=== PATIENT | male | born 1990 | race Hispanic/Latino ===

== ENCOUNTER 2017-11-14 10:47 | Emergency (ER) | payer BC ==
[2017-11-14 11:17] LABS: BASOPHILS % (AUTO) 0.5 % (0.0-5.0); EOSINOPHILS % (AUTO) 1.3 % (0.0-8.0); LYMPHOCYTES % (AUTO) 16.5 % (21.0-51.0); MEAN CORPUSCULAR HEMOGLOBIN 31.1 pg (27.0-33.0); MEAN CORPUSCULAR HGB CONC 35.3 g/dL (32.0-36.0); MEAN CORPUSCULAR VOLUME 88.1 fL (79-99); MONOCYTES % (AUTO) 6.7 % (3.0-13.0); PLATELET COUNT (AUTO) 302 K/uL (130-400); RED BLOOD CELL COUNT(AUTO) 5.22 MIL/uL (4.50-6.20); WHITE BLOOD COUNT (AUTO) 9.3 K/uL (4.8-10.8)
[2017-11-14 11:18] LABS: APPEARANCE,URINE Clear (CLEAR); BILIRUBIN,URINE Negative (NEGATIVE); COLOR,URINE Yellow (YELLOW); GLUCOSE, URINE (UA) >=1000 mg/dL (NEGATIVE); KETONES,URINE 15 mg/dL (NEGATIVE); LEUKOCYTE ESTERASE ,URINE Negative (NEGATIVE); NITRATE,URINE Negative (NEGATIVE); OCCULT BLOOD,URINE Negative (NEGATIVE); PH,URINE 5.5 (5.0-8.0); PROTEIN,URINE Negative (NEGATIVE)
[2017-11-14 11:27] LABS: CREATININE 1.1 mg/dL (0.5-1.5); POTASSIUM 4.6 mmol/L (3.5-5.1)
[2017-11-14 11:29] LABS: AMPHET/METH SCREEN,URINE NEGATIVE (NEGATIVE); BACTERIA,URINE Rare /HPF (None Seen); BARBITURATE SCREEN, URINE NEGATIVE (NEGATIVE); BENZODIAZEPINES SCREEN,URINE NEGATIVE (NEGATIVE); CANNABINOID SCREEN,URINE NEGATIVE (NEGATIVE); COCAINE SCREEN,URINE NEGATIVE (NEGATIVE); OPIATE SCREEN,URINE NEGATIVE (NEGATIVE); PHENCYCLIDINE SCREEN,URINE NEGATIVE (NEGATIVE); RBC,URINE None Seen /HPF (0-1); SQUAMOUS EPITHELIAL CELL,UR 0-2 /LPF (0-2); WBC,URINE 0-1 /HPF (0-1)
[2017-11-14 11:37] LABS: ALBUMIN 3.9 g/dL (3.5-5.0); BILIRUBIN,TOTAL 1.4 mg/dL (0.2-1.0); TOTAL PROTEIN, SERUM 7.2 g/dL (6.0-8.3)
[2017-11-14 11:42] LABS: CREATINE KINASE MB 0.8 ng/mL (0.5-3.6); CREATINE KINASE, TOTAL 115 U/L (21-232); MYOGLOBIN 63 ng/mL (10-92); TROPONIN I < 0.04 ng/mL (0.00-0.06)
[2017-11-14] MEDS ORDERED: INSULIN HUMULIN R 100 UNIT/ML 3ML ONE (11:59)
== END 2017-11-14 12:21 | disposition home or self-care (01) ==
LOC: EDH 10:47
DX: R42 Dizziness and giddiness (principal); E11.65 Type 2 diabetes mellitus with hyperglycemia; Z98.890 Other specified postprocedural states
CPT/HCPCS: 36415; 71046; 80053; 80305; 81001; 82550; 82553; 83874; 84484; 85025; 93005; 96372; 99285; J1815

== ENCOUNTER 2017-12-31 14:27 | Emergency (ER) | payer BC, OTHER ==
[2017-12-31] MEDS ORDERED: IBUPROFEN 800 MG TAB ONE (14:42)
[2017-12-31] MEDS ORDERED: DIAZEPAM 5 MG TABLET ONE (14:43)
== END 2017-12-31 15:52 | disposition home or self-care (01) ==
LOC: EDH 14:27
DX: S16.1XXA Strain of muscle, fascia and tendon at neck level, initial encounter (principal); S39.012A Strain of muscle, fascia and tendon of lower back, initial encounter; E11.9 Type 2 diabetes mellitus without complications; Z79.4 Long term (current) use of insulin; V59.49XA Driver of pick-up truck or van injured in collision with other motor vehicles in traffic accident, initial encounter; Y93.89 Activity, other specified; Y92.89 Other specified places as the place of occurrence of the external cause; Y99.8 Other external cause status

== ENCOUNTER 2018-04-06 06:33 | Inpatient (IN) | payer BC, OTHER ==
[~2018-04-06] VITALS: Ht 182.9 cm; Wt 110.4 kg
[2018-04-06] MEDS ORDERED: SODIUM CHLORIDE 0.9% 1000ML 1,000 ML IV ONE ×2 (07:19→10:31)
[2018-04-06] MEDS ORDERED: ONDANSETRON HCL 4 MG/2 ML VIAL ONE (07:19)
[2018-04-06 07:29] LABS: BASOPHILS % (AUTO) 0.4 % (0.0-5.0); EOSINOPHILS % (AUTO) 0.4 % (0.0-8.0); HEMATOCRIT 47.5 % (42-54); MEAN CORPUSCULAR HEMOGLOBIN 30.3 pg (27.0-33.0); MEAN CORPUSCULAR HGB CONC 33.6 g/dL (32.0-36.0); MONOCYTES % (AUTO) 4.9 % (3.0-13.0); NEUTROPHILS % (AUTO) 84.3 % (40.0-77.0); PLATELET COUNT (AUTO) 324 K/uL (130-400); RED BLOOD CELL COUNT(AUTO) 5.27 MIL/uL (4.50-6.20); RED CELL DISTRIBUTION WIDTH 13.6 % (11.0-15.5); WHITE BLOOD COUNT (AUTO) 12.7 K/uL (4.8-10.8)
[2018-04-06 08:08] LABS: APPEARANCE,URINE Clear (CLEAR); BILIRUBIN,URINE Negative (NEGATIVE); COLOR,URINE Yellow (YELLOW); GLUCOSE, URINE (UA) >=1000 mg/dL (NEGATIVE); KETONES,URINE >=160 mg/dL (NEGATIVE); LEUKOCYTE ESTERASE ,URINE Negative (NEGATIVE); NITRATE,URINE Negative (NEGATIVE); OCCULT BLOOD,URINE Negative (NEGATIVE); PROTEIN,URINE Trace (NEGATIVE)
[2018-04-06 08:17] LABS: BACTERIA,URINE Rare /HPF (None Seen); RBC,URINE 0-1 /HPF (0-1); SQUAMOUS EPITHELIAL CELL,UR Few /HPF (0-2); WBC,URINE 0-1 /HPF (0-1)
[2018-04-06 08:28] LABS: ALANINE AMINOTRANSFERASE 28 U/L (12-78); ALBUMIN 4.5 g/dL (3.5-5.0); ASPARTATE AMINOTRANSFERASE 16 U/L (10-37); BILIRUBIN,TOTAL 2.9 mg/dL (0.2-1.0); CARBON DIOXIDE 15 mmol/L (21-32); CHLORIDE 98 mmol/L (101-111); CREATININE 1.4 mg/dL (0.5-1.5); GLOMERULAR FILTR. RATE CALC 63 mL/min (>60); LIPASE 67 U/L (114-286); POTASSIUM 5.4 mmol/L (3.5-5.1); SODIUM SERUM 133 mmol/L (136-145); UREA NITROGEN, BLOOD 23 mg/dL (7-18)
[2018-04-06 08:48] LABS: GLUCOSE,RANDOM 404 mg/dL (70-105)
[2018-04-06] MEDS ORDERED: INSULIN HUMULIN R 100 UNIT/ML 3ML ONE (09:18)
[2018-04-06 09:19] LABS: ACETONE,BLOOD NEGATIVE (NEGATIVE)
[2018-04-06 12:45] VITALS: BP 135/66
[2018-04-06] MEDS ORDERED: ONDANSETRON HCL 4 MG/2 ML VIAL IVP PRN (13:30)
[2018-04-06] MEDS ORDERED: NS-20 MEQ KCL 1000ML 1,000 ML IV SCH (13:30)
[2018-04-06] MEDS ORDERED: HUM10VIA6 SQ (14:24)
[2018-04-06] MEDS ORDERED: DEXTROSE 50%-WATER 50 ML DISP.SYRIN IV PRN (14:30)
[2018-04-06] MEDS ORDERED: GLUCAGON 1MG KIT 1 MG ML IM PRN (14:30)
[2018-04-06] MEDS: SODIUM CHLORIDE 0.9% 1000ML 1,000 ML IV SCH ×2 (14:34→20:31)
[2018-04-06] MEDS: INSULIN LISPRO 100 UNIT/ML 3ML SQ SCH ×3 (14:35→20:34)
[2018-04-06 16:00] VITALS: BP 134/60
[2018-04-06 16:12] LABS: CHLORIDE 99 mmol/L (101-111); CREATININE 1.6 mg/dL (0.5-1.5); GLOMERULAR FILTR. RATE CALC 54 mL/min (>60); GLUCOSE,RANDOM 315 mg/dL (70-105); POTASSIUM 5.4 mmol/L (3.5-5.1); SODIUM SERUM 133 mmol/L (136-145); UREA NITROGEN, BLOOD 21 mg/dL (7-18)
[2018-04-06 16:36] LABS: ACETONE,BLOOD NEGATIVE (NEGATIVE)
[2018-04-06 16:48] LABS: CARBON DIOXIDE 9 mmol/L (21-32)
[2018-04-06 20:12] VITALS: BP 125/68
[2018-04-07 00:12] VITALS: BP 112/52
[2018-04-07] MEDS: SODIUM CHLORIDE 0.9% 1000ML 1,000 ML IV SCH ×4 (02:34→22:21)
[2018-04-07] MEDS: INSULIN LISPRO 100 UNIT/ML 3ML SQ SCH ×6 (04:00→20:32)
[2018-04-07 04:12] VITALS: BP 124/61
[2018-04-07 04:40] LABS: MEAN CORPUSCULAR HEMOGLOBIN 30.3 pg (27.0-33.0); MEAN CORPUSCULAR HGB CONC 33.8 g/dL (32.0-36.0); MEAN CORPUSCULAR VOLUME 89.7 fL (79-99); PLATELET COUNT (AUTO) 292 K/uL (130-400); RED BLOOD CELL COUNT(AUTO) 4.69 MIL/uL (4.50-6.20); RED CELL DISTRIBUTION WIDTH 13.5 % (11.0-15.5); WHITE BLOOD COUNT (AUTO) 12.3 K/uL (4.8-10.8)
[2018-04-07 04:53] LABS: ALBUMIN 3.3 g/dL (3.5-5.0); BILIRUBIN,TOTAL 2.5 mg/dL (0.2-1.0); CREATININE 1.4 mg/dL (0.5-1.5); POTASSIUM 4.3 mmol/L (3.5-5.1); TOTAL PROTEIN, SERUM 6.2 g/dL (6.0-8.3)
[2018-04-07 08:27] VITALS: BP 119/56
[2018-04-07 10:35] LABS: HEMOGLOBIN A1C 9.7 % (4.0-6.0)
[2018-04-07 11:38] VITALS: BP 123/57
[2018-04-07 16:23] VITALS: BP 116/52
[2018-04-07] MEDS ORDERED: FAMOTIDINE/PF 20 MG/2 ML VIAL IV ONE (19:24)
[2018-04-07] MEDS: FAMOTIDINE 20MG TAB 20 MG TAB PO SCH (20:00)
[2018-04-07 20:24] VITALS: BP 118/68
[2018-04-08 00:24] VITALS: BP 112/59
[2018-04-08 04:24] VITALS: BP 132/77
[2018-04-08 04:50] LABS: BASOPHILS % (AUTO) 0.4 % (0.0-5.0); EOSINOPHILS % (AUTO) 1.2 % (0.0-8.0); HEMATOCRIT 39.7 % (42-54); LYMPHOCYTES % (AUTO) 18.4 % (21.0-51.0); MEAN CORPUSCULAR HEMOGLOBIN 30.7 pg (27.0-33.0); MEAN CORPUSCULAR HGB CONC 34.5 g/dL (32.0-36.0); MONOCYTES % (AUTO) 9.8 % (3.0-13.0); NEUTROPHILS % (AUTO) 70.2 % (40.0-77.0); PLATELET COUNT (AUTO) 237 K/uL (130-400); RED BLOOD CELL COUNT(AUTO) 4.46 MIL/uL (4.50-6.20); RED CELL DISTRIBUTION WIDTH 13.3 % (11.0-15.5); WHITE BLOOD COUNT (AUTO) 8.5 K/uL (4.8-10.8)
[2018-04-08] MEDS: INSULIN LISPRO 100 UNIT/ML 3ML SQ SCH ×7 (04:57→20:30)
[2018-04-08 05:00] LABS: CARBON DIOXIDE 19 mmol/L (21-32); CHLORIDE 107 mmol/L (101-111); CREATININE 1.1 mg/dL (0.5-1.5); GLOMERULAR FILTR. RATE CALC 84 mL/min (>60); GLUCOSE,RANDOM 206 mg/dL (70-105); SODIUM SERUM 140 mmol/L (136-145); UREA NITROGEN, BLOOD 12 mg/dL (7-18)
[2018-04-08] MEDS: SODIUM CHLORIDE 0.9% 1000ML 1,000 ML IV SCH ×2 (05:03→17:16)
[2018-04-08 06:38] LABS: ACETONE,BLOOD NEGATIVE (NEGATIVE)
[2018-04-08 08:20] VITALS: BP 123/82
[2018-04-08] MEDS: FAMOTIDINE 20MG TAB 20 MG TAB PO SCH ×2 (08:42→20:32)
[2018-04-08 12:30] VITALS: BP 128/63
[2018-04-08] MEDS ORDERED: INSULIN GLARGINE 100 UNITS/ML 10 ML VIAL SQ SCH (12:45)
[2018-04-08] MEDS: MAGNESIUM 2GM PREMIX 50ML 50 ML IV SCH (16:20)
[2018-04-08 16:45] VITALS: BP 134/76
[2018-04-08 20:12] VITALS: BP 117/72
[2018-04-09 00:12] VITALS: BP 122/72
[2018-04-09] MEDS: SODIUM CHLORIDE 0.9% 1000ML 1,000 ML IV SCH ×4 (00:13→12:14)
[2018-04-09] MEDS: INSULIN LISPRO 100 UNIT/ML 3ML SQ SCH ×7 (04:00→16:47)
[2018-04-09 04:20] VITALS: BP 134/74
[2018-04-09 05:14] LABS: CREATININE 0.9 mg/dL (0.5-1.5); MAGNESIUM 1.8 mg/dL (1.80-2.40); POTASSIUM 3.1 mmol/L (3.5-5.1)
[2018-04-09] MEDS: MAGNESIUM 2GM PREMIX 50ML 50 ML IV SCH (05:45)
[2018-04-09 07:42] VITALS: BP 132/76
[2018-04-09] MEDS: FAMOTIDINE 20MG TAB 20 MG TAB PO SCH (08:26)
[2018-04-09 12:16] VITALS: BP 137/74
[2018-04-09] MEDS ORDERED: POTASSIUM CHLORIDE 20 MEQ ERTAB PO SCH (12:45)
[2018-04-09] MEDS ORDERED: FAMO20TA8 PO (12:58)
[2018-04-09 16:33] VITALS: BP 140/79
== END 2018-04-09 18:00 | disposition home or self-care (01) | DRG 639 ==
LOC: EDH 06:33 → EDHIP 10:45 → 4CH 12:35 → 4BH 04-08 16:52
PROVIDERS: ADMIT Family Medicine; ATTEND Family Medicine
DX: E10.10 Type 1 diabetes mellitus with ketoacidosis without coma (principal); K29.70 Gastritis, unspecified, without bleeding; E87.5 Hyperkalemia; E83.42 Hypomagnesemia; E66.9 Obesity, unspecified; D72.829 Elevated white blood cell count, unspecified; Z90.89 Acquired absence of other organs; Z68.33 Body mass index [BMI] 33.0-33.9, adult
CPT/HCPCS: 36415; 80048; 80053; 81001; 82009; 82948; 83036; 83690; 83735; 84132; 85025; 85027; J1815; J2405; J3475; J3490; J7030

== ENCOUNTER 2022-08-19 16:00 | Emergency (ER) | payer BC ==
[~2022-08-19] VITALS: Ht 182.9 cm; Wt 136.1 kg
[~2022-08-19 16:00] MED LIST: FAMO20TA8 PO; HUM10VIA6 SQ
[2022-08-19 16:03] VITALS: BP 134/91
[2022-08-19 16:53] LABS: BASOPHILS % (AUTO) 0.6 % (0.0-5.0); EOSINOPHILS % (AUTO) 2.8 % (0.0-8.0); HEMATOCRIT 46.6 % (42-54); LYMPHOCYTES % (AUTO) 21.2 % (21.0-51.0); MEAN CORPUSCULAR HEMOGLOBIN 29.7 pg (27.0-33.0); MEAN CORPUSCULAR HGB CONC 33.7 g/dL (32.0-36.0); MEAN CORPUSCULAR VOLUME 88.1 fL (79-99); MONOCYTES % (AUTO) 9.1 % (3.0-13.0); NEUTROPHILS % (AUTO) 65.8 % (40.0-77.0); PLATELET COUNT (AUTO) 341 K/uL (130-400); RED BLOOD CELL COUNT(AUTO) 5.29 MIL/uL (4.50-6.20); RED CELL DISTRIBUTION WIDTH 13.2 % (11.0-15.5); WHITE BLOOD COUNT (AUTO) 10.4 K/uL (4.8-10.8)
[2022-08-19 17:13] LABS: POTASSIUM 3.4 mmol/L (3.5-5.1); TOTAL PROTEIN, SERUM 7.3 g/dL (6.0-8.3)
== END 2022-08-19 19:48 | disposition home or self-care (01) ==
LOC: EDH 16:00
DX: E11.649 Type 2 diabetes mellitus with hypoglycemia without coma (principal); R06.81 Apnea, not elsewhere classified; Z79.899 Other long term (current) drug therapy; Z79.4 Long term (current) use of insulin
CPT/HCPCS: 36415; 71045; 80053; 82948; 83880; 84484; 85025; 85378; 93005

== ENCOUNTER 2023-10-08 19:46 | Emergency (ER) | payer BC, OTHER ==
[~2023-10-08] VITALS: Ht 182.9 cm; Wt 145.1 kg
[2023-10-08 20:07] LABS: RAPID GROUP A STREP negative (NEGATIVE)
[2023-10-08 20:12] LABS: SARS-CoV-2, RNA, NAAT NEGATIVE SARS CoV-2 (NEGATIVE)
[2023-10-08 20:20] LABS: INFLUENZA TYPE B Negative For Type B (NEGATIVE)
[2023-10-08 20:28] LABS: INFLUENZA TYPE A Positive For Type A (NEGATIVE)
[2023-10-08 22:03] VITALS: BP 149/86; PULSE 94; RESP 18; O2SAT 98
[2023-10-08] MEDS ORDERED: OSEL75 PO (22:24)
[2023-10-08] MEDS ORDERED: BENZ-39 PO (22:24)
[2023-10-08] MEDS ORDERED: BENZONATATE 100 MG CAPSULE PO ONE (22:30)
[2023-10-08] MEDS ORDERED: OSELTAMIVIR PHOSPHATE 75 MG CAP PO ONE (22:30)
== END 2023-10-08 22:44 | disposition home or self-care (01) ==
LOC: EDH 19:46
DX: J10.1 Influenza due to other identified influenza virus with other respiratory manifestations (principal); R05.9 Cough, unspecified; E11.9 Type 2 diabetes mellitus without complications; Z20.822 Contact with and (suspected) exposure to COVID-19; Z79.899 Other long term (current) drug therapy
CPT/HCPCS: 99285; 71045; 87635; 84484; 87880; 87804 ×2; 93005; C9803

== ENCOUNTER 2023-10-31 04:22 | Emergency (ER) | payer BC, OTHER ==
[~2023-10-31] VITALS: Ht 182.9 cm; Wt 153.3 kg
[~2023-10-31 04:22] MED LIST changes: +BENZ-39 PO; +OSEL75 PO
[2023-10-31 04:24] VITALS: BP 161/91; PULSE 121; RESP 18
== END 2023-10-31 05:04 | disposition left against medical advice (07) ==
LOC: EDH 04:22
DX: R07.81 Pleurodynia (principal); Z53.21 Procedure and treatment not carried out due to patient leaving prior to being seen by health care provider

== ENCOUNTER 2024-01-29 12:09 | Emergency (ER) | payer OTHER ==
[~2024-01-29] VITALS: Ht 182.9 cm; Wt 149.7 kg
[2024-01-29 13:03] LABS: BASOPHILS # (AUTO) 0.05 K/uL (0.00-0.20); BASOPHILS % (AUTO) 0.5 % (0.0-5.0); EOSINOPHILS # (AUTO) 0.33 K/uL (0.00-0.70); EOSINOPHILS % (AUTO) 3.5 % (0.0-8.0); HEMATOCRIT 46.7 % (42-54); IMMATURE GRANULOCYTE ABSOLUTE 0.03 K/uL (0-1); LYMPHOCYTES # (AUTO) 2.4 K/uL (1.0-4.8); LYMPHOCYTES % (AUTO) 25.5 % (21.0-51.0); MEAN CORPUSCULAR HEMOGLOBIN 29.2 pg (27.0-33.0); MEAN CORPUSCULAR HGB CONC 33.2 g/dL (32.0-36.0); MEAN CORPUSCULAR VOLUME 88.1 fL (79-99); MONOCYTES # (AUTO) 0.8 K/uL (0.1-1.0); MONOCYTES % (AUTO) 8.6 % (3.0-13.0); NEUTROPHILS # (AUTO) 5.9 K/uL (1.8-7.7); NEUTROPHILS % (AUTO) 61.6 % (40.0-77.0); PLATELET COUNT (AUTO) 344 K/uL (130-400); WHITE BLOOD COUNT (AUTO) 9.5 K/uL (4.8-10.8)
[2024-01-29 13:18] LABS: ALBUMIN 3.8 g/dL (3.5-5.0); BILIRUBIN,TOTAL 1.4 mg/dL (0.2-1.0); POTASSIUM 3.4 mmol/L (3.5-5.1); TOTAL PROTEIN, SERUM 7.4 g/dL (6.0-8.3)
[2024-01-29] MEDS: DEXTROSE 50%-WATER 50 ML DISP.SYRIN IV ONE (13:29)
[2024-01-29 13:46] LABS: COVID19 (SARS ANTIGEN RAPID) PRESUMPTIVE NEGATIVE (NEGATIVE); INFLUENZA TYPE A Negative For Type A (NEGATIVE); INFLUENZA TYPE B Negative For Type B (NEGATIVE)
[2024-01-29] MEDS: KETOROLAC 30MG VIAL (30MG/ML) IVP ONE (14:23)
[2024-01-29] MEDS: GUAIFENESIN-DM 200/20 MG 10 ML PO ONE (15:22)
[2024-01-29] MEDS: LACTATED RINGERS 1000ML 1,000 ML IV ONE (16:56)
[2024-01-29] MEDS ORDERED: IOHEXOL-350 75 ML VIAL IV ONE (17:49)
[2024-01-29 18:21] LABS: APPEARANCE,URINE CLEAR (CLEAR); BILIRUBIN,URINE NEGATIVE (NEGATIVE); COLOR,URINE LIGHT-YELLOW (YELLOW); GLUCOSE, URINE (UA) NEGATIVE (NEGATIVE); KETONES,URINE NEGATIVE (NEGATIVE); LEUKOCYTE ESTERASE ,URINE NEGATIVE Leu/uL (NEGATIVE); NITRATE,URINE NEGATIVE (NEGATIVE); OCCULT BLOOD,URINE SMALL (NEGATIVE); PH,URINE 6.5 (5.0-8.0); PROTEIN,URINE NEGATIVE (NEGATIVE); UROBILINOGEN,URINE 0.2 mg/dL (0.2-1.0)
[2024-01-29 18:24] VITALS: BP 124/78; PULSE 94; RESP 18; O2SAT 99
[2024-01-29 18:25] LABS: ADD UA MICROSCOPIC YES
[2024-01-29 18:26] LABS: MUCUS,URINE RARE LPF (None Seen); RBC,URINE 0-1 /HPF (0-1); SQUAMOUS EPITHELIAL CELL,UR RARE /HPF (0-2); WBC,URINE 0-1 /HPF (0-1)
[2024-01-29 18:27] LABS: AMPHET/METH SCREEN,URINE NEGATIVE (NEGATIVE); BARBITURATE SCREEN, URINE NEGATIVE (NEGATIVE); BENZODIAZEPINES SCREEN,URINE NEGATIVE (NEGATIVE); CANNABINOID SCREEN,URINE NEGATIVE (NEGATIVE); COCAINE SCREEN,URINE NEGATIVE (NEGATIVE); OPIATE SCREEN,URINE NEGATIVE (NEGATIVE); PHENCYCLIDINE SCREEN,URINE NEGATIVE (NEGATIVE)
[2024-01-29] MEDS ORDERED: BENZ-39 PO (18:51)
[2024-01-29] MEDS ORDERED: IBUP-2070 PO (18:51)
== END 2024-01-29 19:03 | disposition home or self-care (01) ==
LOC: EDH 12:09
DX: S22.32XA Fracture of one rib, left side, initial encounter for closed fracture (principal); R07.89 Other chest pain; E11.9 Type 2 diabetes mellitus without complications; X58.XXXA Exposure to other specified factors, initial encounter; Y93.89 Activity, other specified; Y92.89 Other specified places as the place of occurrence of the external cause; Y99.8 Other external cause status
CPT/HCPCS: 99285; 96374; 71270; 71045; 96361; 87426; 84484 ×2; 80053; 80305; 85025; 85378; 87880; 87804 ×2; 82948 ×3; 81001; 36415; 93005 ×2; J7120; J1885; Q9967; J7070

== ENCOUNTER 2024-10-05 18:50 | Emergency (ER) | payer SELFPAY ==
[~2024-10-05] VITALS: Ht 182.9 cm; Wt 142.9 kg
[~2024-10-05 18:50] MED LIST changes: +IBUP-2070 PO
[2024-10-05 20:05] LABS: BASOPHILS # (AUTO) 0.04 K/uL (0.00-0.20); BASOPHILS % (AUTO) 0.5 % (0.0-5.0); EOSINOPHILS # (AUTO) 0.72 K/uL (0.00-0.70); EOSINOPHILS % (AUTO) 9.4 % (0.0-8.0); HEMATOCRIT 48.4 % (42-54); IMMATURE GRANULOCYTE ABSOLUTE 0.01 K/uL (0-1); LYMPHOCYTES # (AUTO) 1.2 K/uL (1.0-4.8); LYMPHOCYTES % (AUTO) 15.9 % (21.0-51.0); MEAN CORPUSCULAR HEMOGLOBIN 29.3 pg (27.0-33.0); MEAN CORPUSCULAR HGB CONC 33.1 g/dL (32.0-36.0); MEAN CORPUSCULAR VOLUME 88.6 fL (79-99); NEUTROPHILS # (AUTO) 4.7 K/uL (1.8-7.7); NEUTROPHILS % (AUTO) 61.1 % (40.0-77.0); PLATELET COUNT (AUTO) 303 K/uL (130-400); RED BLOOD CELL COUNT(AUTO) 5.46 MIL/uL (4.50-6.20); RED CELL DISTRIBUTION WIDTH 13.3 % (11.0-15.5); WHITE BLOOD COUNT (AUTO) 7.7 K/uL (4.8-10.8)
[2024-10-05 20:18] LABS: CREATININE 1.1 mg/dL (0.5-1.3); POTASSIUM 4.1 mmol/L (3.5-5.1)
[2024-10-05 20:27] LABS: SARS-CoV-2, RNA, NAAT NEGATIVE SARS CoV-2 (NEGATIVE)
[2024-10-05 20:32] LABS: INFLUENZA TYPE A Negative For Type A (NEGATIVE); INFLUENZA TYPE B Negative For Type B (NEGATIVE)
--- NOTE | 2024-10-05 20:35 | HMCIMG ---
INDICATION: cough TECHNIQUE: CHEST 1VW COMPARISON: 01/29/2024 FINDINGS/IMPRESSION: Prominent bilateral interstitial markings which may represent bronchitis or vascular congestion in the proper clinical setting. Cardiac silhouette is within normal limits. Mild degenerative changes of the spine. The visualized upper abdomen appears unremarkable.
[2024-10-05] MEDS ORDERED: DEXT15LI31 PO (21:30)
--- NOTE | 2024-10-05 21:31 | ERN ---
ED Note History of Present Illness Stated Complaint: SOB Chief Complaint: Shortness of Breath Time Seen by MD: 18:55 Time Seen by Midlevel: 19:00 Dictation: 34-year-old male was history of diabetes coming in complaining of cough and chest pain for the last 3-4 days. States his dad has been sick with similar symptoms. Denies having any fever, nausea, vomiting, diarrhea. Allergies: Coded Allergies: No Known Drug Allergies (Unverified Allergy, Unknown, 04/06/18) Home Meds Active Scripts Ibuprofen (Ibuprofen) 600 Mg Tablet, 600 MG PO Q6H PRN for PAIN, #30 TAB Prov:MALA PAYNE MD 01/29/24 Benzonatate (Tessalon Perles) 100 Mg Cap, 100 MG PO TID for cough, #30 CAP 0 Refills Prov:MALA PAYNE MD 01/29/24 Benzonatate (Tessalon Perles) 100 Mg Cap, 200 MG PO q8 hours PRN for cough, #15 CAP 0 Refills Prov:KATEY LEE SIFTING OPERATOR 10/08/23 Oseltamivir Phosphate (Tamiflu) 75 Mg Cap, 75 MG PO BID for 5 Days, #9 CAP 0 Refills Prov:KATEY LEE SIFTING OPERATOR 10/08/23 Famotidine (Famotidine) 20 Mg Tablet, 20 MG PO BID for 60 Days, #60 TAB Prov:KRISTY LEE MD 04/09/18 Reported Medications Hum Insulin NPH/Reg Insulin Hm (Novolin 70-30 100 Unit/ml Vial) 100 Unit/1 Ml Vial, 20 UNITS SQ BIDMEALS, VIAL 04/06/18 Past Medical History Past Medical History: Diabetes-Type II Surgical History: None Social History: Negative, Lives with family Review of System Dictation Constitutional: Negative for fever,chills, and weight loss Eyes: Negative for injury, pain,redness, and discharge ENT: Negative for injury,pain or swelling Cardiovascular: Negative for chest pain, palpitations, and edema Respiratory: Positive for cough or shortness a breath, and no wheezing, Abdomen/GI: Negative for abdominal pain, nausea, vomiting, diarrhea, and constipation Back: Negative for injury and pain : Negative for injury, bleeding and discharge MS/Extremity: Negative for injury and deformity Skin: Negative for rash, and discoloration Neuro: Negative for headache, weakness, numbness, tingling, and seizure Psych: Negative for suicide ideation, homicidal ideation, and hallucinations Review of Systems: was completed Initial Vital Sign VS Vital Signs Date Time Temp Pulse Resp B/P (MAP) Pulse Ox O2 Delivery O2 Flow Rate FiO2 10/05/24 18:53 97.5 116 18 154/96 97 Room Air 0 10/05/24 19:38 21 Physical Exam Dictation General: awake, alert, NAD Head/Face: Normocephalic, atraumatic Eyes: PERRL, EOMI, vision at baseline ENT: oral cavity clear, TMs clear, no signs of infection Neck: Trachea midline, supple, no nuchal rigidity Cardiovascular: RRR, normal S1/S2, No MRGs, no JVD Respiratory: CTAB, no respiratory distress, No rales or wheezes Abdomen: Soft, non-tender, non-distended, normal bowel sounds, no guarding or rebound. Skin: Warm, dry, normal turgor, no rash MS/Extremity: Pulses equal, no cyanosis, neurovascular intact, FROM Neuro: COAx4, GCS 15, strength 5/5, CN 2-12 intact, normal cerebellar exam, normal gait, Psych: Normal behavior, mood, and affect normal Results (Laboratory/Radiology) Laboratory/Radiology Laboratory Tests Test 10/05/24 19:50 10/05/24 19:59 Influenza Type A Antigen Negative For Type A Influenza Type B Antigen Negative For Type B SARS-CoV-2, RNA, NAAT NEGATIVE SARS CoV-2 White Blood Count 7.7 K/uL (4.8-10.8) Red Blood Count 5.46 MIL/uL (4.50-6.20) Hemoglobin 16.0 g/dL (14.0-18.0) Hematocrit 48.4 % (42-54) Mean Corpuscular Volume 88.6 fL (79-99) Mean Corpuscular Hemoglobin 29.3 pg (27.0-33.0) Mean Corpuscular Hemoglobin Concent 33.1 g/dL (32.0-36.0) Red Cell Distribution Width 13.3 % (11.0-15.5) Platelet Count 303 K/uL (130-400) Mean Platelet Volume 10.7 fL (7.5-10.5) H Immature Granulocyte % (Auto) 0.1 % (0-1) Neutrophils (%) (Auto) 61.1 % (40.0-77.0) Lymphocytes (%) (Auto) 15.9 % (21.0-51.0) L Monocytes (%) (Auto) 13.0 % (3.0-13.0) Eosinophils (%) (Auto) 9.4 % (0.0-8.0) H Basophils (%) (Auto) 0.5 % (0.0-5.0) Neutrophils # (Auto) 4.7 K/uL (1.8-7.7) Lymphocytes # (Auto) 1.2 K/uL (1.0-4.8) Monocytes # (Auto) 1.0 K/uL (0.1-1.0) Eosinophils # (Auto) 0.72 K/uL (0.00-0.70) H Basophils # (Auto) 0.04 K/uL (0.00-0.20) Absolute Immature Granulocyte (auto 0.01 K/uL (0-1) Nucleated Red Blood Cells 0.0 % (0.0-0.19) Sodium Level 142 mmol/L (136-145) Potassium Level 4.1 mmol/L (3.5-5.1) Chloride Level 105 mmol/L (101-111) Carbon Dioxide Level 30 mmol/L (21-32) Blood Urea Nitrogen 15 mg/dL (7-18) Creatinine 1.1 mg/dL (0.5-1.3) Glomerular Filtration Rate Calc 89 mL/min (>90) Random Glucose 173 mg/dL (70-105) H Total Calcium 8.9 mg/dL (8.5-10.1) Troponin I High Sensitivity < 4 ng/L (4-75) L Labs Reviewed?: Yes EKG Comment: Date:10/05/24 Time:1938 Ventricular rate:111 AL interval:135 QRS duration:42 QT/QTc:314/427 EKG interpretation: Sinus tachycardia Reviewed by ED Attending no STEMI interpreted by ER MD X-RAY Comment: [address] [address] IMAGING REPORT Signed PATIENT: THIERNO BRENNAN MR#: [id number] : 1990 SEX: M AGE: 34 LOCATION: [facility] ORDER 29 STATUS: REG ER REPORT#: [id number] SERVICE 27 REASON: cough ORDERING PHYSICIAN: SEBAS SERNA NP PROCEDURE: CXR1VW - CHEST 1VW INDICATION: cough TECHNIQUE: CHEST 1VW COMPARISON: 01/29/2024 FINDINGS/IMPRESSION: Prominent bilateral interstitial markings which may represent bronchitis or vascular congestion in the proper clinical setting. Cardiac silhouette is within normal limits. Mild degenerative changes of the spine. The visualized upper abdomen appears unremarkable. DICTATED BY: CRISTIAN FORTUNE MD DATE: 10/05/242030 ELECTRONICALLY SIGNED BY: CRISTIAN FORTUNE MD DATE: 10/05/242034 ED Course ED Course Orders Procedure Category Date Status Time Cbc With Differential LAB 10/05/24 Complete 19:28 Basic Metabolic Panel LAB 10/05/24 Complete 19:28 Troponin I High LAB 10/05/24 Complete Sensitivity 19:28 12 Lead Ekg Tracing- EKG 10/05/24 Logged Technical 19:28 Chest 1vw RAD 10/05/24 Resulted 19:28 Covid Rna Naat LAB 10/05/24 Complete 19:28 Influenza Type A & B, LAB 10/05/24 Complete Rapid 19:50 Vital Signs Date Time Temp Pulse Resp B/P (MAP) Pulse Ox O2 Delivery O2 Flow Rate FiO2 10/05/24 19:38 97.3 118 20 144/86 97 Room Air* 0 21 10/05/24 18:53 97.5 116 18 154/96 97 Room Air 0 Medical Decision Making MDM MDM: 34-year-old male was history of diabetes coming in complaining of cough and chest pain for the last 3-4 days. States his dad has been sick with similar symptoms. Denies having any fever, nausea, vomiting, diarrhea.CBC shows no leukocytosis, no anemia, no thrombocytopenia. Chemistry unremarkable. Hyperglycemia at 173. Troponin negative. Serology negative for COVID and flu. Chest x-ray shows bilateral interstitial markings which may represent bronchitis or vascular congestion. We will discharge patient with cough medication follow up PCP. Patient's vital signs have been maintain stable, patient is not tachypneic or hypoxic. Vital signs are stable, heart rate has 101/105 bpm. Discussed findings with patient, educated to follow up with PCP and or return to the ER in 1-2 days. Patient verbalized understanding, answered all questions. Differential diagnosis: Viral syndrome, influenza, COVID, pneumonia, bronchitis Rationale: Tests considered and ordered secondary to shared decision making include: Previous outside records reviewed: Old ER visits. Risk of complication and/or morbidity or mortality of patient management: None Medications-Per medication reconciliation Need for hospitalization: Patient does not meet criteria for hospitalization. Need for emergency major/minor surgery: No There are no social concerns with this patient. Prescription drug management Prescriptions will include symptomatic care Patient's prior external medical records from other ER visits were reviewed by me as indicated. Prior testing and results from previous visits were reviewed. Prior tests were taken into account with medical decision making and resource utilization, independent historian/historians were used to obtain complete medical history. I independently interpreted the test that were performed, results were reviewed by me and considered findings on radiology if ordered. Medical management and examination interpretation discussions were had by me with other qualified healthcare professionals as indicated for the patient's care. DX & DISP Disposition: Discharge Departure Impression: Primary Impression: Bronchitis Condition: Stable Scripts Dextromethorphan HBr (Tussin Cough) 15 Mg/5 Ml Liquid 2.5 ML PO BID for 10 Days, #50 ML 0 Refills Prov: SEBAS SERNA NP 10/05/24 Referrals: LEIGHTON WESLEY MD (PCP) Time of Disposition: 21:31 I have reviewed the case, and I agree with, Diagnosis and Plan SEBAS SERNA NP Oct 05, 2024 21:31
[2024-10-05 21:34] VITALS: BP 147/86; PULSE 99; RESP 18; TEMP 97.8; O2SAT 97
--- NOTE | 2024-10-06 06:54 | EKG ---
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
== END 2024-10-05 21:44 | disposition home or self-care (01) ==
LOC: EDH 18:50
DX: J40 Bronchitis, not specified as acute or chronic (principal); E11.9 Type 2 diabetes mellitus without complications; Z20.822 Contact with and (suspected) exposure to COVID-19
CPT/HCPCS: 36415; 71045; 80048; 84484; 85025; 87635; 87804; 93005; 99285

== ENCOUNTER 2025-06-27 08:22 | Emergency (ER) | payer OTHER ==
[~2025-06-27] VITALS: Ht 182.9 cm; Wt 158.8 kg
[~2025-06-27 08:22] MED LIST changes: +DEXT15LI31 PO; +IBUP-1492 PO; -IBUP-2070 PO
[2025-06-27 09:11] LABS: IMMATURE GRANULOCYTE ABSOLUTE 0.04 K/uL (0-1); NUCLEATED RED BLOOD CELLS 0.0 % (0.0-0.19); PLATELET COUNT (AUTO) 340 K/uL (130-400); RED BLOOD CELL COUNT(AUTO) 5.18 MIL/uL (4.50-6.20); RED CELL DISTRIBUTION WIDTH 13.4 % (11.0-15.5); WHITE BLOOD COUNT (AUTO) 10.8 K/uL (4.8-10.8)
[2025-06-27 09:17] LABS: CREATININE 0.8 mg/dL (0.5-1.3); GLOMERULAR FILTR. RATE CALC 117.0 mL/min (>90); GLUCOSE,RANDOM 56.0 mg/dL (70-105); SODIUM SERUM 138.0 mmol/L (136-145); UREA NITROGEN, BLOOD 16.0 mg/dL (7-18)
[2025-06-27 09:18] LABS: APPEARANCE,URINE CLEAR (CLEAR); GLUCOSE, URINE (UA) NEGATIVE (NEGATIVE); LEUKOCYTE ESTERASE ,URINE 250 Leu/uL (NEGATIVE); NITRATE,URINE NEGATIVE (NEGATIVE); OCCULT BLOOD,URINE NEGATIVE (NEGATIVE)
[2025-06-27 09:22] LABS: ADD UA MICROSCOPIC YES
[2025-06-27 09:25] LABS: SQUAMOUS EPITHELIAL CELL,UR RARE /HPF (0-2)
[2025-06-27] MEDS ORDERED: CEPH500B PO (09:48)
--- NOTE | 2025-06-27 09:48 | ERN ---
General Chief Complaint: Flank Pain Stated Complaint: LEFT FLANK PAIN Time Seen by MD: 08:38 Source: patient History of Present Illness Initial Comments Patient is a 35-year-old male coming in complaining of left flank and back pain. Along with this patient states that he has been feeling weak and has not noticed flow discomfort when he urinates. Symptoms began one day ago. Allergies: Coded Allergies: No Known Drug Allergies (Unverified Allergy, Unknown, 04/06/18) Home Meds Active Scripts Cephalexin Monohydrate (Keflex) 500 Mg Cap, 1 CAP PO BID for 10 Days, #20 CAP 0 Refills Prov:CORRIE CONTRERAS MD 06/27/25 Dextromethorphan HBr (Tussin Cough) 15 Mg/5 Ml Liquid, 2.5 ML PO BID for 10 D ays, #50 ML 0 Refills Prov:SEBAS SERNA NP 10/05/24 Ibuprofen (Ibuprofen) 600 Mg Tablet, 600 MG PO Q6H PRN for PAIN, #30 TAB Prov:MALA PAYNE MD 01/29/24 Benzonatate (Tessalon Perles) 100 Mg Cap, 100 MG PO TID for cough, #30 CAP 0 Refills Prov:MALA PAYNE MD 01/29/24 Benzonatate (Tessalon Perles) 100 Mg Cap, 200 MG PO q8 hours PRN for cough, #15 CAP 0 Refills Prov:KATEY LEE NP 10/08/23 Oseltamivir Phosphate (Tamiflu) 75 Mg Cap, 75 MG PO BID for 5 Days, #9 CAP 0 Refills Prov:KATEY LEE NP 10/08/23 Famotidine (Famotidine) 20 Mg Tablet, 20 MG PO BID for 60 Days, #60 TAB Prov:KRISTY LEE MD 04/09/18 Reported Medications Hum Insulin NPH/Reg Insulin Hm (Novolin 70-30 100 Unit/ml Vial) 100 Unit/1 Ml Vial, 20 UNITS SQ BIDMEALS, VIAL 04/06/18 Past Medical History Past Medical History: Diabetes-Type II Past Surgical History: None Social History Social History: Negative, Lives with family ROS Dictation CONSTITUTIONAL: No chills, no fever, no weakness, no diaphoresis, no malaise. HEAD/FACE: No signs of trauma. EENT: No eye pain, no blurred vision, no tearing, no double vision, no ear pain, no ear discharge, no nose pain, no nasal congestion, no throat pain, no throat swelling, no mouth pain. RESPIRATORY: No cough, no orthopnea, no SOB, no stridor, no wheezing. CARDIOVASCULAR: No chest pain, no edema, no palpitations, no syncope. GASTROINTESTINAL/ABDOMINAL: No abdominal pain, no constipation, no diarrhea, no nausea, no vomiting. GENITOURINARY: No abnormal discharge, dysuria, no frequent urination, no hematuria. No complaints of pain in the genitals. MUSCULOSKELETAL: back pain, no gout, no joint pain, no joint swelling, no m uscle pain, no muscle stiffness, no neck pain. INTEGUMENTARY: No change in color, no change in hair/nails, no dryness, no lesi on, no lumps, no rash. NEUROLOGICAL/PSYCH: No anxiety, not depressed, no emotional problem, no headache, no numbness, no pre-existing deficit, no history of seizures, no tremors, no weakness. HEMATOLOGIC/LYMPHATIC: Not anemic, no history of blood clots, no apparent bleeding, no bruising, glands not swollen. All Systems Negative, Except as Noted. Physical Exam Physical Exam Dictation VITAL SIGNS: Reviewed. GENERAL APPEARANCE: Alert, oriented x3, no acute distress, obese. HEAD AND FACE: Non-traumatic. EYES: PERRL, pink conjunctivas, eyelid no trauma, anterior chamber clear. EARS: Pinnas intact and no signs of trauma or erythema. Ear canals clear and no discharge. TMs no erythema. NOSE: No discharge, no bleeding. OROPHARYNX: Mouth normal, teeth no caries, tongue pink. Pharynx clear, no erythema. Tonsils no exudates, no abscesses noted. Mucous membrane moist. NECK: Supple, non-tender, no thyromegaly, no masses, no JVD, no bruits. BREAST: Deferred. CHEST: No tenderness, no crepitus, no paradoxical movement, no retractions. LUNGS: Clear, well-ventilated, symmetric, no rales, no wheezing, no rhonchi, no stridor, good breath sounds bilaterally. HEART: Regular rate, regular rhythm, no murmur, no gallops. VASCULAR: No peripheral edema. ABDOMEN: Soft, positive bowel sounds, nondistended, no guarding, nontender, no rebound, no masses no hepatomegaly, no splenomegaly, no Mukherjee's sign, no hernias. RECTAL: Deferred. GENITAL: Deferred. NEUROLOGICAL: Normal speech, gross motor function intact, gross sensory function intact. MUSCULOSKELETAL: Neck nontender, full range of motion, back nontender, full range of motion. EXTREMITIES: Nontender, full range of motion. SKIN: Color pink, dry, no turgor, no rash, no lacerations, no abrasions, no contusions. LYMPHATICS: Deferred. Results Laboratory and Microbiology Lab and Micro Result Laboratory Tests Test 06/27/25 09:00 06/27/25 09:06 Urine Color LIGHT-YELLOW (YELLOW) Urine Appearance CLEAR (CLEAR) Urine pH 6.5 (5.0-8.0) Urine Specific [place] 1.014 (1.001-1.031) Urine Protein NEGATIVE mg/dL (NEGATIVE) Urine Glucose (UA) NEGATIVE mg/dL (NEGATIVE) Urine Ketones NEGATIVE mg/dL (NEGATIVE) Urine Occult Blood NEGATIVE (NEGATIVE) Urine Nitrate NEGATIVE (NEGATIVE) Urine Bilirubin NEGATIVE mg/dL (NEGATIVE) Urine Urobilinogen 0.2 mg/dL (0.2-1.0) Urine Leukocyte Esterase 250 Mark/uL (NEGATIVE) H Urine RBC 2-5 /HPF (0-1) H Urine WBC 11-25 /HPF (0-1) H Urine Squamous Epithelial Cells RARE /HPF (0-2) Urine Bacteria None /HPF (None Seen) White Blood Count 10.8 K/uL (4.8-10.8) Red Blood Count 5.18 MIL/uL (4.50-6.20) Hemoglobin 15.1 g/dL (14.0-18.0) Hematocrit 46.2 % (42-54) Mean Corpuscular Volume 89.2 fL (79-99) Mean Corpuscular Hemoglobin 29.2 pg (27.0-33.0) Mean Corpuscular Hemoglobin Concent 32.7 g/dL (32.0-36.0) Red Cell Distribution Width 13.4 % (11.0-15.5) Platelet Count 340 K/uL (130-400) Mean Platelet Volume 10.0 fL (7.5-10.5) Immature Granulocyte % (Auto) 0.4 % (0-1) Neutrophils (%) (Auto) 73.4 % (40.0-77.0) Lymphocytes (%) (Auto) 16.1 % (21.0-51.0) L Monocytes (%) (Auto) 7.9 % (3.0-13.0) Eosinophils (%) (Auto) 1.6 % (0.0-8.0) Basophils (%) (Auto) 0.6 % (0.0-5.0) Neutrophils # (Auto) 8.0 K/uL (1.8-7.7) H Lymphocytes # (Auto) 1.7 K/uL (1.0-4.8) Monocytes # (Auto) 0.9 K/uL (0.1-1.0) Eosinophils # (Auto) 0.17 K/uL (0.00-0.70) Basophils # (Auto) 0.06 K/uL (0.00-0.20) Absolute Immature Granulocyte (auto 0.04 K/uL (0-1) Nucleated Red Blood Cells 0.0 % (0.0-0.19) Sodium Level 138 mmol/L (136-145) Potassium Level 4.0 mmol/L (3.5-5.1) Chloride Level 102 mmol/L (101-111) Carbon Dioxide Level 32 mmol/L (21-32) Blood Urea Nitrogen 16 mg/dL (7-18) Creatinine 0.8 mg/dL (0.5-1.3) Glomerular Filtration Rate Calc 117 mL/min (>90) Random Glucose 56 mg/dL (70-105) L Total Calcium 8.9 mg/dL (8.5-10.1) Labs Reviewed?: Yes MDM MDM: Differential diagnosis: UTI, dysuria, back strain, Rationale: Tests considered and ordered secondary to shared decision making include: Previous outside records reviewed: Old ER visits. Risk of complication and/or morbidity or mortality of patient management: None Medications-Per medication reconciliation Need for hospitalization: Patient does not meet criteria for hospitalization. Need for emergency major/minor surgery: No Patient is a 35-year-old male coming in complaining of back tenderness with dysuria. Laboratory workup positive for urinary tract infection. Patient will be discharged in stable condition with a diagnosis of UTI I did advised him appropriate follow up with PCP in 1-2 days for ongoing management. Throughout ER visit patient has been stable. ED Course Orders Procedure Category Date Status Time Cbc With Differential LAB 06/27/25 Complete 08:54 Basic Metabolic Panel LAB 06/27/25 Complete 08:54 Urinalysis Profile LAB 06/27/25 Complete 08:54 Culture Urine LAVERNE 06/27/25 In Process 09:22 Ct Abdomen W/O CT 06/27/25 Logged Contrast 09:45 Ceftriaxone 1g Vial PHA 06/27/25 Logged (Rocephine 1g Inj) 10:00 Ketorolac PHA 06/27/25 Logged Tromethamine 30mg/Ml 10:00 Current Medications Medications (Trade) Dose Ordered Sig/Genny Route PRN Reason Start Time Stop Time Status Last Admin Dose Admin Ceftriaxone Sodium (ROCEphine 1G INJ) 1 gm ONCE ONCE IM 06/27/25 10:00 06/27/25 10:01 UNV Ketorolac Tromethamine (toRADol) 30 mg ONCE ONCE IM 06/27/25 10:00 06/27/25 10:01 UNV Vital Signs Date Time Temp Pulse Resp B/P (MAP) Pulse Ox O2 Delivery O2 Flow Rate FiO2 06/27/25 08:23 98.1 94 18 145/89 98 Room Air DX & DISP Disposition: Discharge Departure Impression: Primary Impression: UTI (urinary tract infection) Condition: Stable Scripts Cephalexin Monohydrate (Keflex) 500 Mg Cap 1 CAP PO BID for 10 Days, #20 CAP 0 Refills Prov: CORRIE CONTRERAS MD 06/27/25 Additional Instructions: FOLLOW-UP WITH PRIMARY CARE PROVIDER IN 1 TO 2 DAYS. TAKE MEDICATIONS DIRECTED HERE IN THE EMERGENCY ROOM. OKAY TO CONTINUE HOME MEDICATIONS UNLESS OTHERWISE DISCUSSED DURING YOUR VISIT IN THE EMERGENCY ROOM TODAY. RETURN TO YOUR NEAREST EMERGENCY ROOM IF SYMPTOMS WORSEN OR IF THERE IS NO IMPROVEMENT. CALL 911 IF YOU NEED IMMEDIATE ASSISTANCE. TAKE TYLENOL [id number] NEEDED AND IF NO CONTRAINDICATIONS ARE PRESENT. INCREASE ORAL HYDRATION. A WOUND CULTURE OR URINE CULTURE WAS ORDERED HERE IN THE EMERGENCY ROOM DEPARTMENT PLEASE FOLLOW-UP WITH PRIMARY CARE PROVIDER AND ADVISE THEM TO GET REPORTS FROM OUR FACILITY. IF YOU HAD ANY YAO WRAP/SPLINTS THAT WERE APPLIED HERE, PLEASE DO NOT REMOVE THEM UNTIL YOU SEE YOUR PRIMARY CARE OR SPECIALTY. Referrals: Referrals: LEIGHTON WESLEY MD (PCP) Time of Disposition: 09:47 CORRIE CONTRERAS MD Jun 27, 2025 09:48
[2025-06-27] MEDS ORDERED: cefTRIAXone 1G VIAL 1 GM ONE (11:10)
[2025-06-27] MEDS ORDERED: LIDOCAINE HCL-MPF 2% 5ML VIAL ONE (11:11)
[2025-06-27 11:19] VITALS: BP 140/81; PULSE 87; RESP 18; TEMP 98; O2SAT 97
== END 2025-06-27 11:26 | disposition home or self-care (01) ==
LOC: EDH 08:22
DX: N39.0 Urinary tract infection, site not specified (principal); E11.9 Type 2 diabetes mellitus without complications
CPT/HCPCS: 99284; 80048; 85025; 87086; 81001; 36415; 96372 ×2; J1885; J0696; J3490

== ENCOUNTER 2025-09-07 12:15 | Emergency (ER) | payer OTHER ==
[~2025-09-07] VITALS: Ht 182.9 cm; Wt 136.1 kg
[~2025-09-07 12:15] MED LIST changes: +CEPH500B PO
[2025-09-07 12:32] VITALS: TEMP 98.1
[2025-09-07 12:50] VITALS: PULSE 115; RESP 20
[2025-09-07] MEDS: 0.9%NACL 1000ML 1,000 ML IV STA (12:56)
[2025-09-07 13:15] LABS: SARS-CoV-2, RNA, NAAT NEGATIVE SARS CoV-2 (NEGATIVE)
[2025-09-07 13:19] LABS: INFLUENZA TYPE A Negative For Type A (NEGATIVE); INFLUENZA TYPE B Negative For Type B (NEGATIVE)
[2025-09-07 13:30] LABS: RAPID GROUP A STREP negative (NEGATIVE)
[2025-09-07] MEDS: DEXTROSE 50%-WATER 50 ML DISP.SYRIN IV ONE (14:05)
--- NOTE | 2025-09-07 14:08 | NUR ---
PT STATES "I FEEL MY BLOOD SUGAR IS LOW" CHECKED BLOOD GLUCOSE AND READING 50, NOTIFIED SEBAS TELECOMMUNICATIONS LINE MECHANIC AND ORDERED D50 IVP 50 ML X 1 ANS CBC AND CMP, PT AWAKE, AND ORIENTED X 3
[2025-09-07 14:12] VITALS: PULSE 104; RESP 20
[2025-09-07 14:24] LABS: NUCLEATED RED BLOOD CELLS 0.0 % (0.0-0.19); PLATELET COUNT (AUTO) 291.0 K/uL (130-400); RED BLOOD CELL COUNT(AUTO) 4.67 MIL/uL (4.50-6.20); RED CELL DISTRIBUTION WIDTH 13.2 % (11.0-15.5); WHITE BLOOD COUNT (AUTO) 14.9 K/uL (4.8-10.8)
[2025-09-07 14:31] LABS: CREATININE 1.0 mg/dL (0.5-1.3); GLOMERULAR FILTR. RATE CALC 99.0 mL/min (>90); GLUCOSE,RANDOM 146.0 mg/dL (70-105); SODIUM SERUM 137.0 mmol/L (136-145); UREA NITROGEN, BLOOD 14.0 mg/dL (7-18)
[2025-09-07 14:36] LABS: ASPARTATE AMINOTRANSFERASE 13.0 U/L (10-37); TOTAL PROTEIN, SERUM 6.4 g/dL (6.0-8.3)
--- NOTE | 2025-09-07 14:58 | HMCIMG ---
EXAM: CR Chest, 1 View. CLINICAL HISTORY: cough COMPARISON: None provided. FINDINGS: LUNGS: The lungs show no infiltrate or other acute finding. PLEURAL SPACES: No evidence of pleural effusion or pneumothorax. MEDIASTINUM: Cardiac size and mediastinal contours within normal limits. BONES: No aggressive appearing osseous lesion seen. IMPRESSION: No acute cardiopulmonary pathology is evident. /[place]
[2025-09-07] MEDS ORDERED: METH4TAB3 PO (15:05)
[2025-09-07] MEDS ORDERED: BENZ-39 PO (15:05)
[2025-09-07] MEDS ORDERED: ALBUHFA IH (15:05)
--- NOTE | 2025-09-07 15:05 | ERN ---
ED Note History of Present Illness Stated Complaint: COUGH Chief Complaint: Cough Time Seen by MD: 12:19 Time Seen by Midlevel: 12:25 Dictation: 35 year old male coming in with the complaints of shortness a breath. Patient states it started three days ago. States he has only medical history is diabetes. States he took his insulin this morning with a light breakfast. Patient states sometime ago they also gave him in inhaler but ran out and was not told why he needed it or if he needed it [employer]. Allergies: Coded Allergies: No Known Drug Allergies (Unverified Allergy, Unknown, 04/06/18) Home Meds Active Scripts Benzonatate (Tessalon Perles) 100 Mg Cap, 200 MG PO TID for cough for 10 Days, #30 CAP 0 Refills Prov:SEBAS SERNA CNP 09/07/25 Methylprednisolone (Medrol) 4 Mg Tab.ds.pk, 1 TAB PO AD for 6 Days, #21 TAB 0 Refills 6 on day 1 then reduce by one tablet daily until gone Prov:SEBAS SERNA CNP 09/07/25 Albuterol Sulfate (Ventolin Hfa/Proventil Hfa/Proair Hfa) 90 Mcg Puff, 2 PUFF IH Q4H for WHEEZING, #1 INHALER 0 Refills Prov:SEBAS SERNA CNP 09/07/25 Cephalexin Monohydrate (Keflex) 500 Mg Cap, 1 CAP PO BID for 10 Days, #20 CAP 0 Refills Prov:CORRIE CONTRERAS MD 06/27/25 Dextromethorphan HBr (Tussin Cough) 15 Mg/5 Ml Liquid, 2.5 ML PO BID for 10 Days, #50 ML 0 Refills Prov:SEBAS SERNA CNP 10/05/24 Ibuprofen (Ibuprofen) 600 Mg Tablet, 600 MG PO Q6H PRN for PAIN, #30 TAB Prov:MALA PAYNE MD 01/29/24 Benzonatate (Tessalon Perles) 100 Mg Cap, 100 MG PO TID for cough, #30 CAP 0 Refills Prov:MALA PAYNE MD 01/29/24 Benzonatate (Tessalon Perles) 100 Mg Cap, 200 MG PO q8 hours PRN for cough, #15 CAP 0 Refills Prov:KATEY LEE 10/08/23 Oseltamivir Phosphate (Tamiflu) 75 Mg Cap, 75 MG PO BID for 5 Days, #9 CAP 0 Refills Prov:KATEY LEE [facility] 10/08/23 Famotidine (Famotidine) 20 Mg Tablet, 20 MG PO BID for 60 Days, #60 TAB Prov:KRISTY LEE MD 04/09/18 Reported Medications Hum Insulin NPH/Reg Insulin Hm (Novolin 70-30 100 Unit/ml Vial) 100 Unit/1 Ml Vial, 20 UNITS SQ BIDMEALS, VIAL 04/06/18 Past Medical History Past Medical History: Diabetes-Type II Surgical History: None Social History: Negative, Lives with family Review of System Dictation Constitutional: Negative for fever,chills, and weight loss Eyes: Negative for injury, pain,redness, and discharge ENT: Negative for injury,pain or swelling Cardiovascular: Negative for chest pain, palpitations, and edema Respiratory: Complaining of shortness a breath Abdomen/GI: Negative for abdominal pain, nausea, vomiting, diarrhea, and constip ation Back: Negative for injury and pain : Negative for injury, bleeding and discharge MS/Extremity: Negative for injury and deformity Skin: Negative for rash, and discoloration Neuro: Negative for headache, weakness, numbness, tingling, and seizure Psych: Negative for suicide ideation, homicidal ideation, and hallucinations Review of Systems: was completed Initial Vital Sign VS Vital Signs Date Time Temp Pulse Resp B/P (MAP) Pulse Ox O2 Delivery O2 Flow Rate FiO2 09/07/25 12:17 98.1 120 20 126/82 98 Room Air 0 09/07/25 12:32 21 Physical Exam Dictation General: awake, alert, NAD Head/Face: Normocephalic, atraumatic Eyes: PERRL, EOMI, vision at baseline ENT: oral cavity clear, TMs clear, no signs of infection Neck: Trachea midline, supple, no nuchal rigidity Cardiovascular: RRR, normal S1/S2, No MRGs, no JVD Respiratory: , no respiratory distress, bilateral inspiratory and expiratory wheezing Abdomen: Soft, non-tender, non-distended, normal bowel sounds, no guarding or rebound. Skin: Warm, dry, normal turgor, no rash MS/Extremity: Pulses equal, no cyanosis, neurovascular intact, FROM Neuro: COAx4, GCS 15, strength 5/5, CN 2-12 intact, normal cerebellar exam, normal gait, Psych: Normal behavior, mood, and affect normal Results (Laboratory/Radiology) Laboratory/Radiology Laboratory Tests Test 09/07/25 12:20 09/07/25 13:59 09/07/25 14:13 09/07/25 14:56 Influenza Type A Antigen Negative For Type A Influenza Type B Antigen Negative For Type B SARS-CoV-2, RNA, NAAT NEGATIVE SARS CoV-2 Group A Streptococcus Rapid negative (NEGATIVE) Whole Blood Glucose 50 MG/DL (70-110) *L 67 MG/DL (70-110) L Bedside Glucose Comment Notified Nurse White Blood Count 14.9 K/uL (4.8-10.8) H Red Blood Count 4.67 MIL/uL (4.50-6.20) Hemoglobin 13.6 g/dL (14.0-18.0) L Hematocrit 42.3 % (42-54) Mean Corpuscular Volume 90.6 fL (79-99) Mean Corpuscular Hemoglobin 29.1 pg (27.0-33.0) Mean Corpuscular Hemoglobin Concent 32.2 g/dL (32.0-36.0) Red Cell Distribution Width 13.2 % (11.0-15.5) Platelet Count 291 K/uL (130-400) Mean Platelet Volume 10.5 fL (7.5-10.5) Nucleated Red Blood Cells 0.0 % (0.0-0.19) Sodium Level 137 mmol/L (136-145) Potassium Level 3.7 mmol/L (3.5-5.1) Chloride Level 103 mmol/L (101-111) Carbon Dioxide Level 29 mmol/L (21-32) Blood Urea Nitrogen 14 mg/dL (7-18) Creatinine 1.0 mg/dL (0.5-1.3) Glomerular Filtration Rate Calc 99 mL/min (>90) Random Glucose 146 mg/dL (70-105) H Total Calcium 8.1 mg/dL (8.5-10.1) L Total Bilirubin 1.5 mg/dL (0.2-1.0) H Aspartate Amino Transf (AST/SGOT) 13 U/L (10-37) Alanine Aminotransferase (ALT/SGPT) 18 U/L (12-78) Alkaline Phosphatase 78 U/L (50-136) Total Protein 6.4 g/dL (6.0-8.3) Albumin 3.3 g/dL (3.5-5.0) L Test 09/07/25 15:38 Whole Blood Glucose 121 MG/DL (70-110) #H Bedside Glucose Comment Notified Nurse Labs Reviewed?: Yes X-RAY Comment: [facility] [address] [place] [address] IMAGING REPORT Signed PATIENT: THIERNO BRENNAN MR#: [id number] : 1990 SEX: M AGE: 35 LOCATION: [facility] ORDER 23 STATUS: REG ER REPORT#: [id number] SERVICE 22 REASON: cough ORDERING PHYSICIAN: SEBAS SERNA CNP PROCEDURE: CXR1VW - CHEST 1VW EXAM: CR Chest, 1 View. CLINICAL HISTORY: cough COMPARISON: None provided. FINDINGS: LUNGS: The lungs show no infiltrate or other acute finding. PLEURAL SPACES: No evidence of pleural effusion or pneumothorax. MEDIASTINUM: Cardiac size and mediastinal contours within normal limits. BONES: No aggressive appearing osseous lesion seen. IMPRESSION: No acute cardiopulmonary pathology is evident. /[place] DICTATED BY: COLLIN LUQUE Jr., MD DATE: 09/07/251556 ELECTRONICALLY SIGNED BY: COLLIN LUQUE Jr., MD DATE: 09/07/251556 ED Course ED Course Orders Procedure Category Date Status Time Chest 1vw RAD 09/07/25 Resulted 12:23 Covid Rna Naat LAB 09/07/25 Complete 12:23 Rapid (Group A Strep) LAB 09/07/25 Complete 12:23 Influenza Type A & B, LAB 09/07/25 Complete Rapid 12:23 Methylprednisolone PHA 09/07/25 Complete Succ 125mg (Solu-Medr 12:30 0.9%Nacl 1000ml (Ns PHA 09/07/25 Complete 1000ml) 12:23 Ipratropium/Albuterol PHA 09/07/25 Complete Neb (Duoneb) 12:30 Ipratropium/Albuterol PHA 09/07/25 Complete Neb (Duoneb) 14:00 Dextrose 50%-Water PHA 09/07/25 Complete (D50w) 14:00 Cbc Without LAB 09/07/25 Complete Differential 14:00 Comprehensive LAB 09/07/25 Complete Metabolic Panel 14:00 Ipratropium/Albuterol PHA 09/07/25 Complete Neb (Duoneb) 15:00 Current Medications Medications (Trade) Dose Ordered Sig/Genny Route PRN Reason Start Time Stop Time Status Last Admin Dose Admin Albuterol (DUOneb) 1 UDVIAL ONCE ONCE IH 09/07/25 12:30 09/07/25 12:31 DC 09/07/25 12:49 Albuterol (DUOneb) 1 UDVIAL ONCE ONCE IH 09/07/25 14:00 09/07/25 14:01 DC 09/07/25 14:11 Albuterol (DUOneb) 1 UDVIAL ONCE ONCE IH 09/07/25 15:00 09/07/25 15:01 DC 09/07/25 15:06 Dextrose (D50w) 50 ml ONCE ONCE IV 09/07/25 14:00 09/07/25 14:03 DC 09/07/25 14:05 Methylprednisolone Sodium Succinate (Solu-medROL 125MG) 125 mg ONCE ONCE IVP 09/07/25 12:30 09/07/25 12:31 DC 09/07/25 12:56 Sodium Chloride 1,000 ml @ 1,000 mls/hr Q1H STAT IV 09/07/25 12:23 09/07/25 13:22 DC 09/07/25 12:56 Vital Signs Date Time Temp Pulse Resp B/P (MAP) Pulse Ox O2 Delivery O2 Flow Rate FiO2 09/07/25 15:10 105 20 09/07/25 15:07 104 18 130/58 98 Room Air* 0 21 09/07/25 14:12 104 20 09/07/25 12:50 115 20 09/07/25 12:32 98.1 120 20 126/82 98 Room Air* 0 21 09/07/25 12:17 98.1 120 20 126/82 98 Room Air 0 Medical Decision Making MDM MDM: 35 year old male coming in with the complaints of shortness a breath. Patient states it started three days ago. States he has only medical history is diabetes. States he took his insulin this morning with a light breakfast. 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 Chemistry shows no electrolyte abnormality. Sugar is 50, discussed with the patient, states he did take his insulin but only had a light breakfast before coming to the ER. D50 and food was four with the patient. Blood sugar is in the 100s. Discussed with the patient to go home and eat a large meal. No transaminitis. Serology negative for COVID and flu. Has been shows no acute finding, interpreted by ER MD. the obtain three nebulizer two months, fluid and service patient feels much better. CBC with a has a gave him with a hypoglycemia. Discussed with the patient the importance of having adequate amount on meals if he has been be taking his diabetic medication. Also recommended patient to be follow up with the PCP. I will prescribe patient steroids in a [employer] her home. Discussed with the red flag symptoms of when to return back the ER. Differential diagnosis:, pneumonia, fluid overload Rationale: Tests considered and ordered secondary to shared decision making include: Previous outside records reviewed: Old ER visits. Risk of complication and/or morbidity or mortality of patient management: None Medications-Per medication reconciliation Need for hospitalization: Patient does not meet criteria for hospitalization. Need for emergency major/minor surgery: No There are no social concerns with this patient. Prescription drug management Prescriptions will include symptomatic care Patient's prior external medical records from other ER visits were reviewed by me as indicated. Prior testing and results from previous visits were reviewed. Prior tests were taken into account with medical decision making and resource utilization, independent historian/historians were used to obtain complete medical history. I independently interpreted the test that were performed, results were reviewed by me and considered findings on radiology if ordered. Medical management and examination interpretation discussions were had by me with other qualified healthcare professionals as indicated for the patient's care. DX & DISP Disposition: Discharge Departure Impression: Primary Impression: Bronchitis Condition: Stable Scripts Benzonatate (Tessalon Perles) 100 Mg Cap 200 MG PO TID for cough for 10 Days, #30 CAP 0 Refills Prov: SERNA,SEABS [employer] 09/07/25 Methylprednisolone (Medrol) 4 Mg Tab.ds.pk 1 TAB PO AD for 6 Days, #21 TAB 0 Refills 6 on day 1 then reduce by one tablet daily until gone Prov: SEBAS SERNA CNP 09/07/25 Albuterol Sulfate (Ventolin Hfa/Proventil Hfa/Proair Hfa) 90 Mcg Puff 2 PUFF IH Q4H for WHEEZING, #1 INHALER 0 Refills Prov: SEBAS SERNA CNP 09/07/25 Referrals: SELF,REFERRAL (PCP) Time of Disposition: 15:02 I have reviewed the case, and I agree with, Diagnosis and Plan SEBAS SERNA CNP Sep 07, 2025 15:05
--- NOTE | 2025-09-07 15:06 | NUR ---
BLOOD GLUCOSE CHECKED AND READING 65, NOTIFIED SEBAS ARGUELLO, ORDERED A SANDWICH AND CUP OF ORANGE JUICE TO BE GIVEN, PT EATING SANDWICH MEAL NOW WITH ORANGE JUICE
[2025-09-07 15:07] VITALS: BP 130/58; O2SAT 98
[2025-09-07 15:10] VITALS: PULSE 105; RESP 20
== END 2025-09-07 15:50 | disposition home or self-care (01) ==
LOC: EDH 12:15
DX: J40 Bronchitis, not specified as acute or chronic (principal); E11.9 Type 2 diabetes mellitus without complications; Z79.899 Other long term (current) drug therapy; Z20.822 Contact with and (suspected) exposure to COVID-19
CPT/HCPCS: 99285; 96374; 71045; 87635; 96375; 80053; 85027; 87880; 87804 ×2; 82948 ×3; 36415; 94640; J2919; J7030; J7070